=== PATIENT | male | born 1955 | race Caucasian/White ===

== ENCOUNTER 2019-02-07 11:26 | Observation (INO) ==
[2019-02-07 11:58] LABS: Basophils # 0.1 10*3/uL (0.0-0.2); Basophils % 0.7 % (0.0-0.8); Eosinophils # 0.2 10*3/uL (0.0-0.87); Eosinophils % 1.5 % (0.00-10.9); Hematocrit 51.5 VOL% (42.0-52.0); Hemoglobin 17.3 GM/DL (14.0-18.0); Immature Granulocytes % 0.6 %; Immature Granulocytes Absolute 0.07 #; Lymphocytes # 2.1 10*3/uL (1.4-4.0); Lymphocytes % 17.5 % (21.2-54.2); Mean Corpuscular HGB Conc 33.6 GM/DL (32-36); Mean Corpuscular Hemoglobin 30 PG (27-34); Mean Corpuscular Volume 90.4 FL (87-102); Mean Platelet Volume 10.7 FL (9.6-12.0); Monocytes # 0.9 10*3/uL (0.11-0.8); Monocytes % 7.3 % (1.7-12.7); Neutrophils # 8.8 10*3/uL (1.4-7.4); Neutrophils % 72.4 % (38.7-73.9); Platelet Count 222 T/CUMM (130-400); Red Cell Distribution Width 13.3 % (9.3-17.3); White Blood Count 12.1 T/CUMM (4-12)
[2019-02-07 12:19] LABS: Albumin 3.6 G/DL (3.4-5.0); Bilirubin,Total 0.8 MG/DL (0.2-1.0); Calcium 8.6 MG/DL (8.5-10.1); Osmolality,Calculated 275.1 MOS/KG (273-304); Potassium 4.3 MMOL/L (3.5-5.1); Total Protein 7.4 G/DL (6.4-8.3)
[2019-02-07 14:45] LABS: Free T4 (Free Thyroxine) 1.09 NG/DL (0.76-1.46); Thyroid Stimulating Hormone 2.99 uIU/ml (0.358-3.74)
[2019-02-07 15:05] LABS: Apearance,Urine Slightly Hazy (Clear); Bilirubin,Urine Negative (Negative); Blood, Urine Moderate mg/dL (Negative); Glucose,Urine (UA) Negative (Negative); Ketones,Urine 5 mg/dL (Negative); Mucus,Urine Occasional /LPF (Occasional); Nitrite,Urine Negative (Negative); Protein,Urine Negative; RBC,Urine 19 /HPF (0-4); Urine Color Yellow (Yellow); Urine Specific Gravity 1.021 (1.001-1.035); Urine Urobilinogen < 2.0 EU/DL (0.2-1.0); WBC,Urine 2 /HPF (0-6)
[2019-02-07 15:06] LABS: Barbiturates Screen,Urine Negative (Negative); Benzodiazepines Screen,Urine Negative (Negative); Cannabinoid Screen,Urine Positive (Negative); Opiate Screen,Urine Positive (Negative); Phencyclidine Screen,Urine Negative (Negative)
[2019-02-07] MEDS ORDERED: ONDANSETRON 4 MG/2 ML VIAL IV PRN (18:58)
[2019-02-07] MEDS ORDERED: DOCUSATE SODIUM 100 MG CAPSULE PO PRN (18:58)
[2019-02-07] MEDS ORDERED: PROMETHAZINE 25 MG TABLET PO PRN (19:36)
[2019-02-07] MEDS ORDERED: traMADol 50 MG TABLET PO PRN (19:37)
[2019-02-07] MEDS ORDERED: ENOXAPARIN 40 MG/0.4 ML SYRINGE SUBCUT SCH (21:00)
[2019-02-07] MEDS: PANTOPRAZOLE 40 MG VIAL IV SCH (21:36)
[2019-02-08 03:39] LABS: Basophils # 0.1 10*3/uL (0.0-0.2); Basophils % 0.8 % (0.0-0.8); Eosinophils # 0.2 10*3/uL (0.0-0.87); Eosinophils % 1.9 % (0.00-10.9); Hematocrit 48.3 VOL% (42.0-52.0); Hemoglobin 15.9 GM/DL (14.0-18.0); Immature Granulocytes % 0.7 %; Immature Granulocytes Absolute 0.08 #; Lymphocytes # 2.4 10*3/uL (1.4-4.0); Mean Corpuscular HGB Conc 32.9 GM/DL (32-36); Mean Corpuscular Hemoglobin 30 PG (27-34); Mean Corpuscular Volume 89.9 FL (87-102); Mean Platelet Volume 10.5 FL (9.6-12.0); Monocytes # 0.9 10*3/uL (0.11-0.8); Monocytes % 7.8 % (1.7-12.7); Neutrophils # 7.7 10*3/uL (1.4-7.4); Neutrophils % 67.8 % (38.7-73.9); Platelet Count 182 T/CUMM (130-400); Red Blood Count 5.37 MC/CUMM (3.8-5.5); Red Cell Distribution Width 13.3 % (9.3-17.3); White Blood Count 11.4 T/CUMM (4-12)
[2019-02-08 03:58] LABS: Calcium 8.7 MG/DL (8.5-10.1); Osmolality,Calculated 273.2 MOS/KG (273-304); Potassium 4.1 MMOL/L (3.5-5.1)
[2019-02-08] MEDS: ACETAMINOPHEN 325 MG TABLET PO PRN (08:48)
[2019-02-08] MEDS: NICOTINE 21 MG/24 HR PATCH TRANSDERM SCH (08:48)
[2019-02-08] MEDS: LEVOFLOXACIN INJ 500 MG in PREMIX 1 EACH IV SCH (08:49)
[2019-02-08] MEDS: PANTOPRAZOLE 40 MG VIAL IV SCH ×2 (08:49→20:15)
[2019-02-09 05:25] LABS: Basophils # 0.1 10*3/uL (0.0-0.2); Basophils % 0.8 % (0.0-0.8); Eosinophils # 0.2 10*3/uL (0.0-0.87); Eosinophils % 2.4 % (0.00-10.9); Hematocrit 48.2 VOL% (42.0-52.0); Hemoglobin 16.5 GM/DL (14.0-18.0); Immature Granulocytes % 0.5 %; Immature Granulocytes Absolute 0.05 #; Lymphocytes # 2.3 10*3/uL (1.4-4.0); Lymphocytes % 23.4 % (21.2-54.2); Mean Corpuscular HGB Conc 34.2 GM/DL (32-36); Mean Corpuscular Hemoglobin 30 PG (27-34); Mean Corpuscular Volume 88.1 FL (87-102); Monocytes # 0.7 10*3/uL (0.11-0.8); Monocytes % 7.2 % (1.7-12.7); Neutrophils # 6.4 10*3/uL (1.4-7.4); Neutrophils % 65.7 % (38.7-73.9); Platelet Count 159 T/CUMM (130-400); Red Blood Count 5.47 MC/CUMM (3.8-5.5); Red Cell Distribution Width 13.2 % (9.3-17.3); White Blood Count 9.8 T/CUMM (4-12)
[2019-02-09 05:51] LABS: Calcium 8.7 MG/DL (8.5-10.1); Osmolality,Calculated 271.2 MOS/KG (273-304)
[2019-02-09] MEDS ORDERED: LIDOCAINE 2% 5 ML VIAL ONE (09:00)
[2019-02-09] MEDS ORDERED: PROPOFOL 200 MG/20 ML VIAL IV ONE (09:00)
[2019-02-09] MEDS: NICOTINE 21 MG/24 HR PATCH TRANSDERM SCH (09:47)
[2019-02-09] MEDS: PANTOPRAZOLE 40 MG VIAL IV SCH ×2 (09:50→20:41)
[2019-02-09] MEDS: LEVOFLOXACIN INJ 500 MG in PREMIX 1 EACH IV SCH (09:54)
[2019-02-09] MEDS: ACETAMINOPHEN 325 MG TABLET PO PRN (15:14)
[2019-02-10] MEDS: PANTOPRAZOLE 40 MG VIAL IV SCH (09:18)
[2019-02-10] MEDS: LEVOFLOXACIN INJ 500 MG in PREMIX 1 EACH IV SCH (09:20)
[2019-02-10] MEDS: NICOTINE 21 MG/24 HR PATCH TRANSDERM SCH (09:22)
[2019-02-10 16:19] VITALS: BP 117/81
[2019-02-11] MEDS ORDERED: LEVOFLOXACIN 500 MG TABLET PO SCH (09:00)
== END 2019-02-10 16:54 | disposition home or self-care (01) ==
LOC: N.ED 11:26 → N.EDINP 11:26 → SUATTDRO 18:57 → N.2E 19:54
PROVIDERS: ADMIT Phlebology; ATTEND Internal Medicine

== ENCOUNTER 2022-04-29 06:45 | Inpatient (IN) ==
[2022-04-29 07:22] LABS: Basophils # 0.1 10*3/uL (0.0-0.2); Basophils % 0.6 % (0.0-0.8); Eosinophils # 0.2 10*3/uL (0.0-0.87); Eosinophils % 2.7 % (0.00-10.9); Hematocrit 50.4 VOL% (42.0-52.0); Immature Granulocytes % 0.2 %; Immature Granulocytes Absolute 0.02 #; Lymphocytes # 1.7 10*3/uL (1.4-4.0); Lymphocytes % 21.6 % (21.2-54.2); Mean Corpuscular HGB Conc 33.7 GM/DL (32-36); Mean Corpuscular Volume 90.8 FL (87-102); Mean Platelet Volume 11.7 FL (9.6-12.0); Monocytes # 0.5 10*3/uL (0.11-0.8); Monocytes % 6.5 % (1.7-12.7); Neutrophils % 68.4 % (38.7-73.9); Platelet Count 142 T/CUMM (130-400); Red Blood Count 5.55 MC/CUMM (3.8-5.5); Red Cell Distribution Width 13.6 % (9.3-17.3)
[2022-04-29 07:43] LABS: Eosinophils 2 % (0-10); Lymphocytes 25 % (20-55); Total Cells Counted 100
[2022-04-29 07:44] LABS: Platelet Estimate Adequate
[2022-04-29 07:47] LABS: Albumin 3.7 G/DL (3.4-5.0); Bilirubin,Total 0.6 MG/DL (0.20-1.00); Calcium 9.4 MG/DL (8.5-10.1); Osmolality,Calculated 282.4 MOS/KG (273-304); Potassium 4.1 MMOL/L (3.5-5.1); Total Protein 7.6 G/DL (6.4-8.2)
[2022-04-29] MEDS ORDERED: NITROGLYCERIN SL 0.4 MG TABLET SL ONE (08:26)
[2022-04-29] MEDS ORDERED: NITROGLYCERIN SL 0.4 MG TABLET SL STA (08:30)
[2022-04-29] MEDS ORDERED: ASPIRIN EC 81 MG TABLET PO ONE (08:34)
[2022-04-29] MEDS ORDERED: NITROGLYCERIN DRIP 50 MG/250 ML BOTTLE IV ONE (08:41)
[2022-04-29] MEDS ORDERED: NITROGLYCERIN DRIP 50 MG/250 ML BOTTLE IV PRN (08:43)
[2022-04-29] MEDS ORDERED: ENOXAPARIN 60 MG/0.6 ML SYRINGE IV ONE (08:43)
[2022-04-29] MEDS ORDERED: ASPIRIN CHEW 81 MG TABLET PO STA (08:43)
[2022-04-29] MEDS ORDERED: guaiFENesin/DM ER 600-30 MG TABLET PO PRN (08:47)
[2022-04-29] MEDS ORDERED: SIMETHICONE CHEW 125 MG TABLET PO PRN (08:47)
[2022-04-29] MEDS ORDERED: MORPHINE 2 MG/1 ML SYRINGE IV PRN (08:47)
[2022-04-29] MEDS ORDERED: diphenhydrAMINE CAP 50 MG CAPSULE PO ONE (08:47)
[2022-04-29] MEDS ORDERED: DIAZEPAM 5 MG TABLET PO ONE (08:47)
[2022-04-29] MEDS ORDERED: ONDANSETRON 4 MG/2 ML VIAL IV PRN (08:47)
[2022-04-29] MEDS ORDERED: diphenhydrAMINE CAP 25 MG CAPSULE PO PRN (08:47)
[2022-04-29] MEDS ORDERED: ZALEPLON 5 MG CAPSULE PO PRN (08:47)
[2022-04-29] MEDS ORDERED: ACETAMINOPHEN 325 MG TABLET PO PRN (08:47)
[2022-04-29] MEDS ORDERED: LACTULOSE 20 GM/30 ML UDCUP PO PRN (08:47)
[2022-04-29] MEDS ORDERED: hydrALAZINE 20 MG/1 ML VIAL IV PRN (08:47)
[2022-04-29] MEDS ORDERED: ALUMINUM/MAGNES/SIMETH MAX STR 30 ML UDCUP PO PRN (08:47)
[2022-04-29] MEDS ORDERED: BISACODYL 5 MG TABLET PO PRN (08:47)
[2022-04-29] MEDS ORDERED: CALCIUM CARBONATE CHEW 500 MG TABLET PO PRN (08:47)
[2022-04-29] MEDS ORDERED: ONDANSETRON 4 MG/2 ML VIAL ONE (08:51)
[2022-04-29] MEDS ORDERED: MORPHINE 2 MG/1 ML SYRINGE ONE (08:51)
[2022-04-29] MEDS ORDERED: ONDANSETRON 4 MG/2 ML VIAL IV STA (08:52)
[2022-04-29] MEDS ORDERED: MORPHINE 2 MG/1 ML SYRINGE IV STA (08:52)
[2022-04-29] MEDS: PANTOPRAZOLE 40 MG TABLET PO SCH (08:59)
[2022-04-29] MEDS ORDERED: ENOXAPARIN 60 MG/0.6 ML SYRINGE IV SCH (09:00)
[2022-04-29] MEDS ORDERED: SODIUM CHLORIDE 0.9% 1,000 ML IV SCH (09:00)
[2022-04-29] MEDS ORDERED: fentaNYL 100 MCG/2 ML VIAL ONE (09:05)
[2022-04-29] MEDS ORDERED: MIDAZOLAM 2 MG/2 ML VIAL ONE (09:05)
[2022-04-29] MEDS ORDERED: HEPARIN/NACL 0.9% 2 UNITS/ML 2,000 UNIT/1,000 ML BAG IV ONE (09:18)
[2022-04-29] MEDS ORDERED: LIDOCAINE 1%/EPI INJ 20 ML VIAL ONE (09:18)
[2022-04-29] MEDS ORDERED: TIROFIBAN 5,000 MCG/100 ML PREMIX IV ONE (09:22)
[2022-04-29] MEDS ORDERED: TICAGRELOR 90 MG TABLET ONE (09:30)
[2022-04-29] MEDS ORDERED: HYDROmorphone 1 MG/1 ML SYRINGE IV PRN (09:51)
[2022-04-29] MEDS: ATORVASTATIN 40 MG TABLET PO SCH (22:10)
[2022-04-29] MEDS: carvediloL 6.25 MG TABLET PO SCH (22:10)
[2022-04-29] MEDS: TICAGRELOR 90 MG TABLET PO SCH (22:10)
[2022-04-30 04:19] LABS: Basophils # 0.1 10*3/uL (0.0-0.2); Basophils % 0.4 % (0.0-0.8); Eosinophils % 0.3 % (0.00-10.9); Hematocrit 45.8 VOL% (42.0-52.0); Hemoglobin 15.6 GM/DL (14.0-18.0); Immature Granulocytes % 0.4 %; Immature Granulocytes Absolute 0.05 #; Lymphocytes # 1.4 10*3/uL (1.4-4.0); Lymphocytes % 11.7 % (21.2-54.2); Mean Corpuscular HGB Conc 34.1 GM/DL (32-36); Mean Corpuscular Volume 90.5 FL (87-102); Mean Platelet Volume 12.3 FL (9.6-12.0); Monocytes # 0.8 10*3/uL (0.11-0.8); Monocytes % 6.4 % (1.7-12.7); Neutrophils % 80.8 % (38.7-73.9); Platelet Count 128 T/CUMM (130-400); Red Blood Count 5.06 MC/CUMM (3.8-5.5); Red Cell Distribution Width 13.6 % (9.3-17.3); White Blood Count 12.1 T/CUMM (4-12)
[2022-04-30 04:55] LABS: Calcium 8.8 MG/DL (8.5-10.1); Osmolality,Calculated 276.7 MOS/KG (273-304); Potassium 3.7 MMOL/L (3.5-5.1); Risk Ratio 4.94; Thyroid Stimulating Hormone 0.32 uIU/ml (0.358-3.74); VLDL Cholesterol 18.4 MG/DL
[2022-04-30] MEDS: TICAGRELOR 90 MG TABLET PO SCH ×2 (09:08→21:52)
[2022-04-30] MEDS: carvediloL 6.25 MG TABLET PO SCH (09:09)
[2022-04-30] MEDS: PANTOPRAZOLE 40 MG TABLET PO SCH (09:09)
[2022-04-30] MEDS: ENOXAPARIN 40 MG/0.4 ML SYRINGE SUBCUT SCH (09:09)
[2022-04-30] MEDS: ASPIRIN EC 81 MG TABLET PO SCH (09:09)
[2022-04-30 15:00] LABS: Mucus,Urine Occasional /LPF (Occasional); RBC,Urine 6 /HPF (0-4); Urine Appearance Clear (Clear); Urine Color Yellow (Yellow)
[2022-04-30 15:01] LABS: Bilirubin,Urine Negative (Negative); Blood, Urine Small mg/dL (Negative); Glucose,Urine (UA) 100 mg/dL (Negative); Ketones,Urine 40 mg/dL (Negative); Nitrite,Urine Negative (Negative); Protein,Urine Negative (Negative); Urine Specific Gravity 1.025 (1.001-1.035)
[2022-04-30] MEDS: ATORVASTATIN 40 MG TABLET PO SCH (21:52)
[2022-04-30] MEDS: carvediloL 3.125 MG TABLET PO SCH (21:53)
[2022-05-01 04:05] LABS: Basophils # 0.1 10*3/uL (0.0-0.2); Basophils % 0.6 % (0.0-0.8); Eosinophils # 0.2 10*3/uL (0.0-0.87); Eosinophils % 2.3 % (0.00-10.9); Hematocrit 41.5 VOL% (42.0-52.0); Immature Granulocytes % 0.3 %; Immature Granulocytes Absolute 0.03 #; Lymphocytes # 2.2 10*3/uL (1.4-4.0); Lymphocytes % 24.7 % (21.2-54.2); Mean Corpuscular HGB Conc 33.7 GM/DL (32-36); Mean Corpuscular Volume 90.6 FL (87-102); Mean Platelet Volume 12.1 FL (9.6-12.0); Monocytes # 0.7 10*3/uL (0.11-0.8); Monocytes % 7.9 % (1.7-12.7); Neutrophils % 64.2 % (38.7-73.9); Platelet Count 106 T/CUMM (130-400); Red Blood Count 4.58 MC/CUMM (3.8-5.5); Red Cell Distribution Width 13.7 % (9.3-17.3); White Blood Count 8.7 T/CUMM (4-12)
[2022-05-01 04:30] LABS: Calcium 8.4 MG/DL (8.5-10.1); Osmolality,Calculated 279.5 MOS/KG (273-304); Potassium 4.1 MMOL/L (3.5-5.1)
[2022-05-01 05:40] VITALS: BP 101/68
[2022-05-01] MEDS: ASPIRIN EC 81 MG TABLET PO SCH (09:25)
[2022-05-01] MEDS: carvediloL 3.125 MG TABLET PO SCH (09:25)
[2022-05-01] MEDS: PANTOPRAZOLE 40 MG TABLET PO SCH (09:25)
[2022-05-01] MEDS: ENOXAPARIN 40 MG/0.4 ML SYRINGE SUBCUT SCH (09:26)
[2022-05-01] MEDS: TICAGRELOR 90 MG TABLET PO SCH (09:26)
== END 2022-05-01 13:50 | disposition home or self-care (01) | DRG 247 ==
LOC: N.ED 06:45 → N.EDINP 08:47 → N.ICU 09:00
PROVIDERS: ADMIT Internal Medicine Interventional Cardiology; ATTEND Internal Medicine Interventional Cardiology
PROC: CLCCHCL (ICD-10-PCS; 2022-04-29 09:30)